=== PATIENT | male | born 1985 | race Caucasian/White ===

== ENCOUNTER 2020-11-19 12:11 | Day surgery (SDCO) | payer OTHER ==
[~2020-11-19] VITALS: Ht 175.3 cm; Wt 84.6 kg
[~2020-11-19 12:11] MED LIST: LISINOPRIL-HCT1 EAC1 PO; METOPROLOL SUCC25 MG PO; PRILOSEC20 MG PO; SERTRALINE HCL50 MG PO
[2020-11-19 13:31] LABS: BASOPHIL 0.4 % (0-2); EOSINOPHIL 0 % (0-5); HCT 49.1 % (42.0-52.0); HGB 18.3 g/dl (13.2-18.0); LYMPHOCYTE 12.9 % (15-48); MCHC 37.3 g/dL (32.0-36.0); MCV 96.5 fL (78.0-100.0); MONOCYTE 12.2 % (0-12); MPV 10.4 fL (6.0-9.5); NEUTROPHIL 73.6 % (41-80); NRBC 0; PLT 230 K/uL (150-400); RBC 5.09 M/uL (4.70-6.00); RDW 10.6 % (11.5-14.0); WBC 13.8 K/uL (4.0-10.5)
[2020-11-19 13:53] LABS: ALBUMIN 4.4 g/dL (3.4-5.0); BILIRUBIN - TOTAL 2.4 mg/dL (0.2-1.0); CREATININE 1.03 mg/dL (0.67-1.17); GLOBULIN (CALCULATION) 4.2 g/dL; POTASSIUM 2.8 mmol/L (3.5-5.1); TOTAL PROTEIN 8.6 g/dL (6.4-8.2)
[2020-11-19 16:15] LABS: BILIRUBIN 1+ mg/dL (NEGATIVE); BLOOD NEGATIVE Ery/uL (NEGATIVE); CLARITY CLEAR (CLEAR); COLOR YELLOW (YELLOW); GLUCOSE (U) NORMAL (NORMAL); LEUKOCYTES NEGATIVE Leu/uL (NEGATIVE); NITRITE NEGATIVE (NEGATIVE); PROTEIN 1+ mg/dL (NEGATIVE)
[2020-11-19 16:25] LABS: SQUAMOUS EPITHELIAL CELLS RARE; URINARY WBC RARE
[2020-11-19] MEDS ORDERED: LISINOPRIL10 MG PO (17:22)
[2020-11-19] MEDS ORDERED: TOPROL XL 25MG25 MG PO (17:26)
[2020-11-20 06:20] LABS: BASOPHIL 0.3 % (0-2); EOSINOPHIL 0.8 % (0-5); HCT 39.3 % (42.0-52.0); HGB 13.9 g/dl (13.2-18.0); LYMPHOCYTE 32.6 % (15-48); MCH 35.8 pg (25.0-31.0); MCHC 35.4 g/dL (32.0-36.0); MONOCYTE 14.3 % (0-12); NEUTROPHIL 51.5 % (41-80); NRBC 0; PLT 135 K/uL (150-400); RBC 3.88 M/uL (4.70-6.00); RDW 10.6 % (11.5-14.0); WBC 6.2 K/uL (4.0-10.5)
[2020-11-20 06:38] LABS: MCV 101.3 fL (78.0-100.0)
[2020-11-20 07:09] LABS: ALBUMIN 3.1 g/dL (3.4-5.0); BILIRUBIN - TOTAL 1.6 mg/dL (0.2-1.0); CREATININE 0.91 mg/dL (0.67-1.17); GLOBULIN (CALCULATION) 3.3 g/dL; POTASSIUM 3.9 mmol/L (3.5-5.1); TOTAL PROTEIN 6.4 g/dL (6.4-8.2)
[2020-11-21 06:24] LABS: BASOPHIL 0.9 % (0-2); EOSINOPHIL 1.7 % (0-5); HGB 12.7 g/dl (13.2-18.0); MCH 35.5 pg (25.0-31.0); MCHC 34.3 g/dL (32.0-36.0); MCV 103.4 fL (78.0-100.0); MONOCYTE 13.1 % (0-12); MPV 10.1 fL (6.0-9.5); NRBC 0; PLT 129 K/uL (150-400); RBC 3.58 M/uL (4.70-6.00); RDW 10.4 % (11.5-14.0); WBC 5.8 K/uL (4.0-10.5)
[2020-11-21 06:58] LABS: CREATININE 0.8 mg/dL (0.67-1.17); POTASSIUM 4.5 mmol/L (3.5-5.1); TOTAL PROTEIN 6.1 g/dL (6.4-8.2)
[2020-11-21 06:59] LABS: ALBUMIN 2.9 g/dL (3.4-5.0); BILIRUBIN - TOTAL 0.7 mg/dL (0.2-1.0); GLOBULIN (CALCULATION) 3.2 g/dL
[2020-11-21] MEDS ORDERED: SUCRALFATE1 GM PO (09:53)
[2020-11-21] MEDS ORDERED: PROTONIX 40MG T40 MG PO (09:54)
[2020-11-21] MEDS ORDERED: ONDANSETRON ODT4 MG PO (09:55)
--- NOTE | 2020-11-21 11:32 | NUR ---
PATIENT IN STABLE CONDITION. IV DILAUDID GIVEN PER REQUEST PRIOR TO DISCHARGE. IV REMOVED, PRESSURE APPLIED TO SITE NO BLEEDING NOTED. D/C HOME WITH MOTHER. DISCUSSED DISCHARGE INSTRUCTIONS WITH PATIENT
== END 2020-11-21 11:30 | disposition home or self-care (01) ==
LOC: FER 12:11 → FMS 15:59
PROVIDERS: Emergency Medicine; Nurse Practitioner; ADMIT Allergy & Immunology Allergy
DX: K29.00 Acute gastritis without bleeding (principal); K76.0 Fatty (change of) liver, not elsewhere classified; E86.0 Dehydration; N17.9 Acute kidney failure, unspecified; E87.6 Hypokalemia; E87.1 Hypo-osmolality and hyponatremia; E87.8 Other disorders of electrolyte and fluid balance, not elsewhere classified; I10 Essential (primary) hypertension; K21.9 Gastro-esophageal reflux disease without esophagitis; F17.210 Nicotine dependence, cigarettes, uncomplicated; K85.90 Acute pancreatitis without necrosis or infection, unspecified; Z79.899 Other long term (current) drug therapy; Z20.822 Contact with and (suspected) exposure to COVID-19
CPT/HCPCS: 36415; 76705; 80053; 80061; 81001; 83605; 83690; 85025; C9113; G0378; J1170; J2405; J3480; J7030; Q9967; U0002

== ENCOUNTER 2020-12-21 04:35 | Inpatient (IN) | payer OTHER ==
[~2020-12-21] VITALS: Ht 175.3 cm; Wt 89.0 kg
[~2020-12-21 04:35] MED LIST changes: +LISINOPRIL10 MG PO; +ONDANSETRON ODT4 MG PO; +PROTONIX 40MG T40 MG PO; +SUCRALFATE1 GM PO; +TOPROL XL 25MG25 MG PO
[2020-12-21 05:10] LABS: BASOPHIL 0.4 % (0-2); EOSINOPHIL 0.2 % (0-5); HCT 48.7 % (42.0-52.0); HGB 17.3 g/dl (13.2-18.0); LYMPHOCYTE 14.6 % (15-48); MCH 34.7 pg (25.0-31.0); MCHC 35.5 g/dL (32.0-36.0); MCV 97.8 fL (78.0-100.0); MONOCYTE 21.1 % (0-12); MPV 10.3 fL (6.0-9.5); NRBC 0; PLT 332 K/uL (150-400); RBC 4.98 M/uL (4.70-6.00); RDW 11.2 % (11.5-14.0); WBC 12.9 K/uL (4.0-10.5)
[2020-12-21 05:14] LABS: INR 1.01 (0.9-1.2); PROTHROMBIN TIME 12.7 SECONDS (11.8-13.4); PTT 26.5 SECONDS (24.4-34.7)
[2020-12-21 05:19] LABS: NEUTROPHIL 63.2 % (41-80)
[2020-12-21 05:34] LABS: LACTIC ACID 13.1 mmol/L (0.4-1.9)
[2020-12-21 05:35] LABS: PRO-BNP 677 pg/mL (<125)
[2020-12-21 05:38] LABS: ALBUMIN 4.6 g/dL (3.4-5.0); ALKALINE PHOSHATASE 76 U/L (46-116); ALT 70 U/L (16-63); AST 55 U/L (15-37); BILIRUBIN - TOTAL 1.3 mg/dL (0.2-1.0); BUN 22 mg/dL (7-18); BUN/CREAT RATIO (CALC) 9.2 RATIO; CHLORIDE 88 mmol/L (98-107); CO2 (BICARBONATE) 28 mmol/L (21-32); CPK 48 U/L (39-308); CREATININE 2.39 mg/dL (0.67-1.17); GLOBULIN (CALCULATION) 4.2 g/dL; GLUCOSE 177 mg/dL (74-106); LIPASE 97 U/L (73-393); MAGNESIUM 1.3 mg/dL (1.8-2.4); POTASSIUM 3.8 mmol/L (3.5-5.1); TOTAL PROTEIN 8.8 g/dL (6.4-8.2)
[2020-12-21 13:08] LABS: BILIRUBIN NEGATIVE (NEGATIVE); BLOOD NEGATIVE Ery/uL (NEGATIVE); CLARITY CLEAR (CLEAR); COLOR YELLOW (YELLOW); GLUCOSE (U) NORMAL (NORMAL); LEUKOCYTES NEGATIVE Leu/uL (NEGATIVE); NITRITE NEGATIVE (NEGATIVE); PROTEIN 2+ mg/dL (NEGATIVE); SPECIFIC GRAVITY 1.015 (1.001-1.030); pH 8.5 (5.0-9.0)
[2020-12-21 13:12] LABS: ECSTASY (MDMA) NEGATIVE (NEGATIVE); MARIJUANA (THC) NEGATIVE (NEGATIVE)
[2020-12-21 13:13] LABS: AMPHETAMINES NEGATIVE (NEGATIVE); BARBITURATES NEGATIVE (NEGATIVE); METHADONE NEGATIVE (NEGATIVE); OPIATES NEGATIVE (NEGATIVE); OXYCODONE NEGATIVE (NEGATIVE)
[2020-12-21 13:25] LABS: BACTERIA 1+; SQUAMOUS EPITHELIAL CELLS RARE; URINARY RBC RARE
[2020-12-22 05:29] LABS: BASOPHIL 0.5 % (0-2); EOSINOPHIL 0.5 % (0-5); HCT 39.5 % (42.0-52.0); HGB 13.5 g/dl (13.2-18.0); LYMPHOCYTE 38.5 % (15-48); MCH 34.2 pg (25.0-31.0); MCHC 34.2 g/dL (32.0-36.0); MONOCYTE 12.3 % (0-12); MPV 9.7 fL (6.0-9.5); NRBC 0; PLT 173 K/uL (150-400); RBC 3.95 M/uL (4.70-6.00); RDW 10.8 % (11.5-14.0); WBC 8.5 K/uL (4.0-10.5)
[2020-12-22 06:10] LABS: BUN/CREAT RATIO (CALC) 6.7 RATIO; CREATININE 1.5 mg/dL (0.67-1.17); GLOBULIN (CALCULATION) 2.9 g/dL; MAGNESIUM 2.2 mg/dL (1.8-2.4); POTASSIUM 3.2 mmol/L (3.5-5.1); TOTAL PROTEIN 5.9 g/dL (6.4-8.2)
--- NOTE | 2020-12-22 14:51 | NUR ---
RD visited for nutritional information/interview: patient drowsy from EGD; added ONS to trays; will revisit when cognition improves.
[2020-12-23 04:42] LABS: BASOPHIL 0.8 % (0-2); EOSINOPHIL 0.9 % (0-5); HCT 38.7 % (42.0-52.0); HGB 12.9 g/dl (13.2-18.0); LYMPHOCYTE 40.4 % (15-48); MCH 34.4 pg (25.0-31.0); MCHC 33.3 g/dL (32.0-36.0); MCV 103.2 fL (78.0-100.0); MONOCYTE 9.9 % (0-12); MPV 10.5 fL (6.0-9.5); NEUTROPHIL 47.8 % (41-80); NRBC 0; PLT 165 K/uL (150-400); RBC 3.75 M/uL (4.70-6.00); RDW 10.9 % (11.5-14.0); WBC 6.7 K/uL (4.0-10.5)
[2020-12-23 05:10] LABS: HBSAG SCREEN Negative (Negative); HEP B CORE AB, TOT Negative (Negative); HEP C VIRUS AB <0.1 (0.0-0.9)
[2020-12-23 05:10] LABS: ALBUMIN 2.9 g/dL (3.4-5.0); BILIRUBIN - TOTAL 0.4 mg/dL (0.2-1.0); BUN/CREAT RATIO (CALC) 8.3 RATIO; CREATININE 1.21 mg/dL (0.67-1.17); GLOBULIN (CALCULATION) 3.1 g/dL; POTASSIUM 3.7 mmol/L (3.5-5.1)
[2020-12-23] MEDS ORDERED: SUCRALFATE1 GM PO (14:59)
[2020-12-23] MEDS ORDERED: PROTONIX 40MG T40 MG PO (14:59)
== END 2020-12-23 15:20 | disposition home or self-care (01) | DRG 683 ==
LOC: FER 04:35 → FTCU 06:00
PROVIDERS: Allergy & Immunology Allergy; Emergency Medicine; Internal Medicine; Nurse Practitioner; Student in an Organized Health Care Education/Training Program; ADMIT Internal Medicine
PROC: 0DB38ZX Excision of Lower Esophagus, Via Natural or Artificial Opening Endoscopic, Diagnostic (ICD-10-PCS; 2020-12-22)
PROC: 0DB98ZX Excision of Duodenum, Via Natural or Artificial Opening Endoscopic, Diagnostic (ICD-10-PCS; principal; 2020-12-22 13:15)
PROC: 0DB78ZX Excision of Stomach, Pylorus, Via Natural or Artificial Opening Endoscopic, Diagnostic (ICD-10-PCS; 2020-12-22 13:15)
DX: N17.9 Acute kidney failure, unspecified (principal); E87.4 Mixed disorder of acid-base balance; E86.0 Dehydration; I10 Essential (primary) hypertension; Z20.822 Contact with and (suspected) exposure to COVID-19; K76.0 Fatty (change of) liver, not elsewhere classified; K21.00 Gastro-esophageal reflux disease with esophagitis, without bleeding; K83.8 Other specified diseases of biliary tract; E83.42 Hypomagnesemia; E86.9 Volume depletion, unspecified; K29.70 Gastritis, unspecified, without bleeding; F41.9 Anxiety disorder, unspecified; F17.210 Nicotine dependence, cigarettes, uncomplicated; Z79.899 Other long term (current) drug therapy; Z80.0 Family history of malignant neoplasm of digestive organs; Z82.3 Family history of stroke
CPT/HCPCS: 36415; 36600; 71045; 80053; 80305; 81001; 82009; 82140; 82150; 82550; 82803; 83605; 83690; 83735; 83880; 84145; 84439; 84443; 84484; 85025; 85610; 85730; 86704; 86706; 86708; 86803; 87045; 87046; 87205; 87340; 88305; 93005; 94010; 94760; 94762; C9113; G0378; G0480; J2060; J2250; J2270; J2405; J2704; J3475; J7030; J7050; J7120; U0002

== ENCOUNTER 2021-08-09 21:29 | Emergency (ER) | payer OTHER ==
[2021-08-09 22:50] LABS: BASOPHIL 0.2 % (0-2); EOSINOPHIL 0.4 % (0-5); HCT 40.6 % (42.0-52.0); HGB 14.5 g/dl (13.2-18.0); LYMPHOCYTE 11.3 % (15-48); MCH 35.5 pg (25.0-31.0); MCHC 35.7 g/dL (32.0-36.0); MCV 99.3 fL (78.0-100.0); MONOCYTE 11.9 % (0-12); MPV 9.9 fL (6.0-9.5); NEUTROPHIL 75.8 % (41-80); NRBC 0; RBC 4.09 M/uL (4.70-6.00); RDW 12.3 % (11.5-14.0); WBC 5.6 K/uL (4.0-10.5)
[2021-08-09 23:09] LABS: PLT 97 K/uL (150-400)
[2021-08-09 23:14] LABS: ALBUMIN 3.8 g/dL (3.4-5.0); BILIRUBIN - TOTAL 0.9 mg/dL (0.2-1.0); BUN/CREAT RATIO (CALC) 9.6 RATIO; CREATININE 0.73 mg/dL (0.67-1.17); GLOBULIN (CALCULATION) 3.3 g/dL; POTASSIUM 3.1 mmol/L (3.5-5.1); TOTAL PROTEIN 7.1 g/dL (6.4-8.2)
[2021-08-09 23:20] LABS: AMPHETAMINES NEGATIVE (NEGATIVE); BARBITURATES NEGATIVE (NEGATIVE); ECSTASY (MDMA) NEGATIVE (NEGATIVE); MARIJUANA (THC) NEGATIVE (NEGATIVE); METHADONE NEGATIVE (NEGATIVE); OPIATES NEGATIVE (NEGATIVE); OXYCODONE NEGATIVE (NEGATIVE)
== END 2021-08-10 03:11 | disposition home or self-care (01) ==
LOC: FER 21:29
PROVIDERS: Emergency Medicine
DX: R56.9 Unspecified convulsions (principal); S00.12XA Contusion of left eyelid and periocular area, initial encounter; F17.200 Nicotine dependence, unspecified, uncomplicated; Z20.822 Contact with and (suspected) exposure to COVID-19; W19.XXXA Unspecified fall, initial encounter
CPT/HCPCS: 36415; 70450; 72125; 80053; 80305; 84484; 85025; 93005; G0480; J1885; J7030; U0002